=== PATIENT | male | born 1960 | race Caucasian/White ===

== ENCOUNTER → 2021-04-02 | Outpatient (CLI) | payer OTHER ==
[~2021-04-02] MED LIST: LISI-167 PO; METF500T17 PO
[2021-04-02 16:06] LABS: ALANINE AMINOTRANSFERASE 44 U/L (12-78); ALBUMIN 3.6 g/dL (3.4-5.0); ANION GAP 4 mmol/L (5-15); CHLORIDE 110 mmol/L (98-107)
[2021-04-02 16:09] LABS: ALKALINE PHOSPHATASE 77 U/L (45-117); BILIRUBIN,TOTAL 0.5 mg/dL (0.2-1.0); CREATININE 1.06 mg/dL (0.7-1.3); TOTAL PROTEIN 6.6 g/dL (6.4-8.2)
== END | disposition home or self-care (01) ==
LOC: STAR 14:47
PROVIDERS: ATTEND Surgery
DX: Z01.818 Encounter for other preprocedural examination (principal); K43.9 Ventral hernia without obstruction or gangrene; Z20.822 Contact with and (suspected) exposure to COVID-19
CPT/HCPCS: 36415; 80053; 93005; U0003; U0005

== ENCOUNTER 2021-04-08 05:56 | Day surgery (SDC) | payer OTHER ==
[~2021-04-08] VITALS: Ht 182.9 cm; Wt 109.3 kg
[2021-04-08] MEDS ORDERED: CHLORHEXIDINE 15 ML UDC ONE (06:11)
[2021-04-08] MEDS ORDERED: CHLORHEXIDINE 15 ML UDC PO ONE (06:30)
[2021-04-08] MEDS ORDERED: LACTATED RINGERS 1,000 ML IV SCH (06:30)
[2021-04-08] MEDS ORDERED: EPINEPHRINE 1 MG/ML, 1ML ONE (06:56)
[2021-04-08] MEDS ORDERED: BUPIVACAINE/PF 0.25% ONE (06:56)
[2021-04-08] MEDS ORDERED: FENTANYL PF 250 MCG/5ML ONE (08:05)
[2021-04-08] MEDS ORDERED: MIDAZOLAM 1 MG/ML, 2ML ONE (08:05)
[2021-04-08] MEDS ORDERED: ONDANSETRON 2MG/ML, 2ML ONE (08:59)
[2021-04-08] MEDS ORDERED: CEFAZOLIN 1,000 MG ONE (08:59)
[2021-04-08] MEDS ORDERED: PROPOFOL 10 MG/ML, 20ML ONE (08:59)
[2021-04-08] MEDS ORDERED: NEOSTIGMINE 1 MG/ML, 10ML ONE (08:59)
[2021-04-08] MEDS ORDERED: DEXAMETHASONE 4 MG/ML, 1ML ONE (08:59)
[2021-04-08] MEDS ORDERED: GLYCOPYRROLATE 0.2MG/1ML, 5ML ONE (08:59)
[2021-04-08] MEDS ORDERED: SUCCINYLCHOLINE 20 MG/ML, 10ML ONE (08:59)
[2021-04-08] MEDS ORDERED: ROCURONIUM 10MG/ML,5ML ONE (08:59)
[2021-04-08] MEDS ORDERED: OXYC-302 PO (09:10)
[2021-04-08] MEDS ORDERED: MEPERIDINE/PF 25MG/0.5ML IVPush PRN (09:30)
[2021-04-08] MEDS ORDERED: LABETALOL 5MG/ML, 20ML IV PRN (09:30)
[2021-04-08] MEDS ORDERED: DIAZEPAM 5 MG/ML, 2ML IVPush PRN (09:30)
[2021-04-08] MEDS ORDERED: KETOROLAC 30 MG/1 ML IV PRN (09:30)
[2021-04-08] MEDS ORDERED: PROMETHAZINE 25 MG/ML, 1ML IV PRN (09:30)
[2021-04-08] MEDS ORDERED: hydrALAzine 20 MG/ML, 1ML IV PRN (09:30)
[2021-04-08] MEDS ORDERED: FENTANYL PF 100 MCG/2ML IV PRN (09:30)
[2021-04-08] MEDS ORDERED: ALBUTEROL SULFATE 2.5 MG/3 ML NPPB PRN (09:30)
[2021-04-08] MEDS ORDERED: HYDROmorphone 2 MG/ML, 1ML IVPush PRN (09:30)
[2021-04-08] MEDS ORDERED: OXYcodone 5 MG/5 ML ORAL.SOL UDC PO PRN (09:30)
[2021-04-08] MEDS ORDERED: ACETAMINOPHEN 325 MG TABLET PO PRN (09:30)
== END 2021-04-08 12:11 | disposition home or self-care (01) ==
LOC: OUT 05:56
PROVIDERS: ATTEND Surgery
DX: K43.6 Other and unspecified ventral hernia with obstruction, without gangrene (principal); I10 Essential (primary) hypertension; E78.5 Hyperlipidemia, unspecified; E11.9 Type 2 diabetes mellitus without complications; E66.9 Obesity, unspecified; Z79.84 Long term (current) use of oral hypoglycemic drugs; Z79.899 Other long term (current) drug therapy
CPT/HCPCS: 49561; 49568; 82962; C1729; C1781; J0171; J0330; J0690; J1100; J2250; J2405; J2704; J2710; J3010; J7120

== ENCOUNTER 2021-08-09 09:53 | Emergency (ER) | payer OTHER ==
[~2021-08-09] VITALS: Ht 182.9 cm; Wt 101.8 kg
[~2021-08-09 09:53] MED LIST changes: +OXYC-302 PO
[2021-08-09 12:45] LABS: BASOPHILS % (AUTO) 1 % (0-1); EOSINOPHILS % (AUTO) 2 % (1-7); LYMPHOCYTES % (AUTO) 19 % (22-44); MEAN CORPUSCULAR HEMOGLOBIN 32.7 pg (27.5-34.5); MEAN CORPUSCULAR HGB CONC 34.7 g/dL (33.2-36.2); MEAN PLATELET VOLUME 8.5 fL (7.4-10.4); MONOCYTES % (AUTO) 11 % (2-9); NEUTROPHILS % (AUTO) 67 % (42-75); PLATELET COUNT 216 x10^3/uL (130-400); RED BLOOD COUNT 5.94 x10^6/uL (4.38-5.82); RED CELL DISTRIBUTION WIDTH 13.7 % (9.4-14.8)
[2021-08-09 12:53] LABS: ALBUMIN 3.5 g/dL (3.4-5.0); CALCIUM 8.5 mg/dL (8.5-10.1)
[2021-08-09 12:58] LABS: ALANINE AMINOTRANSFERASE 49 U/L (12-78); ALKALINE PHOSPHATASE 99 U/L (45-117); BILIRUBIN,TOTAL 0.7 mg/dL (0.2-1.0); CREATININE 0.94 mg/dL (0.7-1.3); TOTAL PROTEIN 7.8 g/dL (6.4-8.2)
--- NOTE | 2021-08-09 13:05 | NUR ---
PATIENT ROOMED FROM [facility]
[2021-08-09 13:06] LABS: ANION GAP 8 mmol/L (5-15); CHLORIDE 106 mmol/L (98-107)
[2021-08-09 13:27] VITALS: BP 143/89
[2021-08-09 13:31] LABS: MICROSCOPIC AUTO
== END 2021-08-09 14:07 | disposition home or self-care (01) ==
LOC: ED 10:06
DX: K43.9 Ventral hernia without obstruction or gangrene (principal); R10.13 Epigastric pain; R19.7 Diarrhea, unspecified
CPT/HCPCS: 36415; 74021; 80053; 81001; 83690; 85025; 87086; 99284